=== PATIENT | male | born 1965 | race Caucasian/White ===

== ENCOUNTER 2018-10-15 22:06 | Emergency (ER) | payer SELFPAY ==
[~2018-10-15] VITALS: Ht 167.6 cm; Wt 90.4 kg
[2018-10-15 22:23] VITALS: RESP 19; Ht 167.6 cm; Wt 90.4 kg
[2018-10-16] MEDS ORDERED: KETOROLAC 30 MG INJ IM STA (00:43)
[2018-10-16] MEDS ORDERED: LIDOCAINE 2% (MDV) 20 ML INJ INJ ONE (01:00)
[2018-10-16] MEDS ORDERED: CEPH-443 PO (01:16)
[2018-10-16] MEDS ORDERED: TRAM50TA2 PO (01:16)
[2018-10-16] MEDS ORDERED: SULF1TAB31 PO (01:16)
[2018-10-16] MEDS ORDERED: IBUP-1542 PO (01:16)
--- NOTE | 2018-10-16 01:22 | ERD ---
ER Documentation Chief Complaint Chief Complaint RIGHT ARM ABSCESS- REDNESS, HOT TO TOUCH, PUSS [id number] HPI 53-year-old male with no reported past medical surgical history presents with complaint of right arm redness, swelling, pus draining from right forearm. Patient states he may have gotten bitten by some type of insect about 8 days ago. Area has acutely worsened. He otherwise denies fevers, chills, toxic exposures, history of diabetes, chest pain, shortness of breath, affected extremity paresthesias or numbness or any other concerning symptoms. Reports all vaccinations up-to-date and no additional medications. ROS All systems reviewed and are negative except as per history of present illness. Medications Home Meds Active Scripts Cephalexin* (Keflex*) 500 Mg Capsule, 500 MG PO QID for 7 Days, CAP Prov:JEUDINECAITLYNHO PA-C 10/16/18 Sulfamethoxazole/Trimethoprim* (Bactrim Ds* Tablet) 1 Each Tablet, 1 TAB PO BID for 7 Days, #14 TAB Prov:JEUDINE,CAITLYNHO PA-C 10/16/18 Ibuprofen* (Motrin*) 600 Mg Tab, 600 MG PO Q6, #30 TAB Prov:JEUDINE,GETHO PA-C 10/16/18 Tramadol HCl (Tramadol HCl) 50 Mg Tablet, 50 MG PO Q4 PRN for PAIN, #20 TAB Prov:JEUDINE,GETHO PA-C 10/16/18 Allergies Allergies: Coded Allergies: No Known Allergy (Unverified , 10/16/18) PMhx/Soc Medical and Surgical Hx: pt denies Medical Hx, pt denies Surgical Hx Hx Alcohol Use: No Hx Substance Use: No Hx Tobacco Use: No Smoking Status: Never smoker FmHx Family History: No diabetes, No coronary disease, No other Physical Exam Vitals Vital Signs Date Temp Pulse Resp B/P (MAP) Pulse Ox O2 O2 Flow FiO2 Time Delivery Rate 10/15/18 98.9 79 19 136/87 98 22:23 (103) Physical Exam I have reviewed the triage vital signs. Const: Well nourished, well developed, appears stated age Eyes: PERRL, no conjunctival injection HENT: NCAT, Neck supple without meningismus CV: RRR, Warm, well-perfused extremities RESP: CTAB, Unlabored respiratory effort GI: soft, non-tender, non-distended, no masses MSK: No gross deformities appreciated Skin: Right underside of forearm with central lesion, erythema, swelling draining, induration, warm and tender to touch, moves extremity without issue, nonfocal Neuro: grossly non focal Psych: Appropriate mood and affect. Results 24 hrs Current Medications Medications Dose Sig/Benji Start Time Status Last (Trade) Ordered Route PRN Stop Time Admin Dose Reason Admin Lidocaine 20 ml ONCE ONCE 10/16/18 DC 10/16/18 (Xylocaine INJ 01:00 00:56 2% (Mdv) 20 10/16/18 01:01 ml) Ketorolac 30 mg ONCE STAT 10/16/18 DC 10/16/18 Tromethamine IM 00:43 00:53 (Toradol) 10/16/18 00:45 Procedures/MDM 53-year-old male presents with right forearm abscess. Abscess drained and packed in the emergency room without complication. Patient neurovascular intact post procedure. Will discharge with appropriate antibiotics and pain control. Abscess Incision and Drainage with irrigation by me: Location: Right underside of forearm Anesthesia: Local 1% Lidocaine Technique: Irrigated. Disrupted loculations w/ instrumentation Packing: Yes Complications: Neurovascularly intact post procedure 48 hour wound check. Scar minimization instructions given. DISPOSITION PLAN: We discussed follow up with the patient's primary care doctor within 24 to 48 hours. Patient counseled regarding my diagnostic impression and care plan. Prior to discharge all questions answered. Pt agrees with treatment plan and understands strict return precautions. Precautionary instructions provided including instructions to return to the ER if not improving or for any worsening or changing symptoms or concerns. Disclaimer: Inadvertent spelling and grammatical errors are likely due to EHR/dictation software use and do not reflect on the overall quality of patient care. Also, please note that the electronic time recorded on this note does not necessarily reflect the actual time of the patient encounter. Departure Diagnosis: Primary Impression: Abscess Condition: Stable Patient Instructions: Abscess, Incision And Drainage Additional Instructions: Call your primary care doctor TOMORROW for an appointment during the next 2-3 days.See the doctor sooner or return here if your condition worsens before your appointment time. Return in 48 hours for wound check. NILESH KAUR PA-C Oct 16, 2018 01:22
[2018-10-16 02:09] VITALS: BP 147/88; PULSE 63
== END 2018-10-16 02:10 | disposition home or self-care (01) ==
LOC: FTE 22:06
DX: L02.413 Cutaneous abscess of right upper limb (principal)
CPT/HCPCS: 10060; 96372; 99284; J1885

== ENCOUNTER 2018-10-18 18:14 | Emergency (ER) | payer SELFPAY ==
[~2018-10-18] VITALS: Ht 167.6 cm; Wt 92.2 kg
[~2018-10-18 18:14] MED LIST: CEPH-443 PO; IBUP-1542 PO; SULF1TAB31 PO; TRAM50TA2 PO
[2018-10-18 18:25] VITALS: Ht 167.6 cm; Wt 92.2 kg
--- NOTE | 2018-10-18 19:19 | ERD ---
ER Documentation Chief Complaint Chief Complaint HERE FOR RECHECK ON RT ARM WOUND HPI 53-year-old male presents for recheck on abscess incised and drained 2 days ago. He is taking Bactrim and Keflex. He has had some discharge but overall he feels wound is improving. Denies fevers, vomiting, shortness of breath or chest pain. ROS All systems reviewed and are negative except as per history of present illness. Medications Home Meds Active Scripts Cephalexin* (Keflex*) 500 Mg Capsule, 500 MG PO QID for 7 Days, CAP Prov:JEUDINENILESH PA-C 10/16/18 Sulfamethoxazole/Trimethoprim* (Bactrim Ds* Tablet) 1 Each Tablet, 1 TAB PO BID for 7 Days, #14 TAB Prov:CAITLYN KAURHO PA-C 10/16/18 Ibuprofen* (Motrin*) 600 Mg Tab, 600 MG PO Q6, #30 TAB Prov:CAITLYN KAURHO PA-C 10/16/18 Tramadol HCl (Tramadol HCl) 50 Mg Tablet, 50 MG PO Q4 PRN for PAIN, #20 TAB Prov:CAITLYN KAURHO PA-C 10/16/18 Allergies Allergies: Coded Allergies: No Known Allergy (Unverified , 10/16/18) PMhx/Soc Medical and Surgical Hx: pt denies Medical Hx, pt denies Surgical Hx Hx Alcohol Use: No Hx Substance Use: No Hx Tobacco Use: No Smoking Status: Never smoker FmHx Family History: No diabetes, No coronary disease, No other Physical Exam Vitals Vital Signs Date Temp Pulse Resp B/P (MAP) Pulse Ox O2 O2 Flow FiO2 Time Delivery Rate 10/18/18 97.8 72 18 142/87 98 18:25 (105) Physical Exam Const: No acute distress Head: Atraumatic Eyes: Normal Conjunctiva ENT: Normal External Ears, Nose and Mouth. Neck: Full range of motion. No meningismus. Resp: Clear to auscultation bilaterally Cardio: Regular rate and rhythm, no murmurs Abd: Soft, non tender, non distended. Normal bowel sounds Skin: No petechiae or rashes Back: No midline or flank tenderness Ext: No cyanosis, or edema. Right elbow redness with draining abscess site. No effusion, decreased range of motion. No streaking or residual fluctuance appreciated. Neur: Awake and alert Psych: Normal Mood and Affect Procedures/MDM Patient presents with signs and symptoms were appears to be improving abscess in the right elbow after incision and drainage. Will be discharged home with continuation of antibiotics, instructions to return for worsening redness, fevers, new or worsening symptoms or with primary care doctor. There is no signs of necrotizing fasciitis, SIRS criteria, septic arthritis doubt osteomyelitis. The patient was stable with no new complaints during the ER course. Clinically, there is no current evidence to suggest meningitis, sepsis, acute abdomen, pneumonia, stroke, acute coronary syndrome, pulmonary embolism, aortic dissection or any other emergent condition appearing to require further evaluation or hospitalization. Patient counseled regarding my diagnostic impression and care plan. Prior to discharge all questions answered. Pt agrees with treatment plan and understands strict return precautions. Pt is instructed to follow up with primary care provider within 24-48 hours. Precautionary instructions provided including instructions to return to the ER if not improving or for any worsening or changing symptoms or concerns. Disclaimer: Inadvertent spelling and grammatical errors are likely due to EHR/dictation software use and do not reflect on the overall quality of patient care. Also, please note that the electronic time recorded on this note does not necessarily reflect the actual time of the patient encounter. Departure Diagnosis: Primary Impression: Abscess Patient Instructions: Abscess, Incision And Drainage Additional Instructions: . Cheque otro vez con [facility] doctor primario en el proximo rubio or regresa para mas o nueva simptomas- boone burkett. continua antibioticos. CASIE YBARRA MD Oct 18, 2018 19:19
[2018-10-18 19:30] VITALS: BP 127/73; PULSE 67; RESP 18
== END 2018-10-18 19:31 | disposition home or self-care (01) ==
LOC: FTE 18:14
DX: L02.413 Cutaneous abscess of right upper limb (principal)
CPT/HCPCS: 99282